=== PATIENT | male | born 1975 | race Caucasian/White ===

== ENCOUNTER 2017-04-13 17:54 | Emergency (ER) | payer MEDICAID ==
[2017-04-13 18:03] VITALS: BP 129/72
--- NOTE | 2017-04-13 18:50 | ED Physician Documentation ---
PD HPI LOWER EXT INJURY - Stated complaint Stated Complaint: R LEG INJ - Chief complaint Chief Complaint: Ext Problem - History obtained from History obtained from: Patient, Family - History of Present Illness PD HPI LOW EXT INJURY LOCATION: Other (Logging at home and 1 of the logs shifted and hit him on the bottom of the right leg and he feels like his knee may have dislocated. Pain is minimal at rest. He has not tried to walk.) Review of Systems Constitutional: denies: Fever, Chills GI: reports: Reviewed and negative : reports: Reviewed and negative PD PAST MEDICAL HISTORY - Past Medical History Past Medical History: No - Past Surgical History Past Surgical History: No - Present Medications Home Medications: Ambulatory Orders Medication Instructions Recorded Confirmed No Known Home Medications [No 04/13/17 04/13/17 Known Home Medications] - Allergies Allergies/Adverse Reactions: Allergies Allergy/AdvReac Type Severity Reaction Status Date / Time No Known Drug Allergies Allergy Verified 04/13/17 18:03 - Social History Does the pt smoke?: No Smoking Status: Never smoker Does the pt have substance abuse?: No PD ED PE NORMAL - Vitals Vital signs reviewed: Yes - General General: Alert and oriented X 3, No acute distress - Extremities Extremities: Other (Right knee is mildly tender superiorly and medially but all the ligaments are intact. He does have positive grind testing though. Negative effusion. Mild tenderness and swelling to the distal francois anteriorly and laterally over the ankle. No foot tenderness. NVI in the foot.) - Neuro Neuro: Alert and oriented X 3, Normal speech - Psych Psych: Normal mood, Normal affect Results - Vitals Vitals: Vital Signs - 24 hr 04/13/17 18:02 Temperature 36.4 C L Heart Rate 72 Respiratory 18 Rate Blood Pressure 129/72 O2 Saturation 99 Oxygen O2 Source Room air - Rads (name of study) R tib fib and 4v R knee Radiology: EMP read contemporaneously (normal) Departure - Departure Disposition: 01 Home, Self Care Clinical Impression: Contusion of right leg Qualifiers: Encounter type: initial encounter Qualified Code(s): S80.11XA - Contusion of right lower leg, initial encounter Strain of right knee Qualifiers: Encounter type: initial encounter Qualified Code(s): S86.911A - Strain of unspecified muscle(s) and tendon(s) at lower leg level, right leg, initial encounter Condition: Good Record reviewed to determine appropriate education?: Yes Instructions: ED Meniscal Injury Knee Poss Comments: Recheck with your doctor in 1 week if not better, return if worse. Discharge Date/Time: 04/13/17 19:22
--- NOTE | 2017-04-13 19:17 | XRAY Preliminary Report ---
Exam: XR KNEE 4 VIEW RT IMPRESSION: Normal knee radiography. [facility] SITE ID: [id number]
[2017-04-13] MEDS ORDERED: IBUPROFEN 800 MG TABLET PO STA (19:18)
--- NOTE | 2017-04-13 19:18 | XRAY Preliminary Report ---
Exam: XR TIB/FIB RT IMPRESSION: Normal tibia/fibula radiography. [facility] SITE ID: [id number]
--- NOTE | 2017-04-13 19:18 | XRAY Report ---
EXAM: RIGHT TIBIA/FIBULA RADIOGRAPHY EXAM DATE: 04/13/2017 07:09 PM. CLINICAL HISTORY: Leg inj. laterally pain after impact injury. COMPARISON: Right knee today. TECHNIQUE: 3 views. FINDINGS: Bones: Normal. No fracture or bone lesion. Joints: The visualized knee and ankle joints are normal. No effusions. Soft Tissues: Normal. No soft tissue swelling. IMPRESSION: Normal tibia/fibula radiography. [facility] Referring Provider Line: [phone] SITE ID: [id number]
--- NOTE | 2017-04-13 19:18 | XRAY Report ---
EXAM: RIGHT KNEE RADIOGRAPHY EXAM DATE: 04/13/2017 07:09 PM. CLINICAL HISTORY: Medial right knee pain after impact to lateral knee. COMPARISON: Tibia-fibula today. TECHNIQUE: 4 views. FINDINGS: Bones: Normal. No fractures or bone lesions. Joints: Normal. No effusion. No subluxations. Soft Tissues: Normal. No soft tissue swelling. IMPRESSION: Normal knee radiography. [facility] Referring Provider Line: [phone] SITE ID: [id number]
== END 2017-04-13 19:22 | disposition home or self-care (01) ==
LOC: ED 17:54
DX: S86.911A Strain of unspecified muscle(s) and tendon(s) at lower leg level, right leg, initial encounter (principal); S80.11XA Contusion of right lower leg, initial encounter; W20.8XXA Other cause of strike by thrown, projected or falling object, initial encounter; Y93.89 Activity, other specified; Y92.009 Unspecified place in unspecified non-institutional (private) residence as the place of occurrence of the external cause
CPT/HCPCS: 73564; 73590; 99283; A9270

== ENCOUNTER 2017-05-02 12:29 | Outpatient (CLI) | payer MEDICAID ==
--- NOTE | 2017-05-02 17:52 | MRI Report ---
EXAM: RIGHT KNEE MRI WITHOUT CONTRAST EXAM DATE: 05/02/2017 01:33 PM. CLINICAL HISTORY: Knee pain, right, acute. COMPARISON: None. TECHNIQUE: Multiplanar, multisequence T1-weighted and fluid-sensitive sequences of the knee without c ontrast. Other: None. FINDINGS: Bones: No fractures or subluxations. No marrow edema. No bone lesions. Articular Cartilage: Unremarkable. Medial Meniscus: The medial meniscus is intact. Lateral Meniscus: The lateral meniscus is intact. Cruciate Ligaments: The anterior and posterior cruciate ligaments are intact. Collateral Ligaments: Full-thickness tear proximal MCL. Series 801 image 20. This may be subacute. Th ere is a small amount of edema surrounding it. Tendons: The quadriceps, patellar, semimembranosus, and popliteus tendons are unremarkable. Musculature: No edema or fatty atrophy. Other: No effusion. No popliteal cyst. No loose bodies. The medial and lateral retinacula are intact . There is a small amount of edema in Hoffa's fat pad. IMPRESSION: 1. Full-thickness tear of the proximal MCL with a small amount of edema surrounding it, this may be s ubacute. 2. Menisci, cruciates and LCL appear unremarkable. [facility] MUSCULOSKELET[facility]IOLOG[facility] SECTION Referring Provider Line: [phone] SITE ID: [id number]
== END 2017-05-02 12:30 | disposition home or self-care (01) ==
LOC: DI 12:29
PROVIDERS: ATTEND Nurse Practitioner Family
DX: S83.411A Sprain of medial collateral ligament of right knee, initial encounter (principal)

== ENCOUNTER 2017-05-17 10:09 | Outpatient (CLI) | payer MEDICAID ==
--- NOTE | 2017-05-17 12:42 | XRAY Report ---
THREE VIEW LUMBAR SPINE: 05/17/2017 CLINICAL INDICATION: Back pain, radiculopathy. FINDINGS: AP, lateral, coned down views of the lumbar spine demonstrate normal height and alignment of the vertebral bodies. The disk spaces are preserved. The bowel gas pattern is unremarkable. IMPRESSION: NORMAL LUMBAR SPINE. TD: 05/17/2017 12:40
--- NOTE | 2017-05-17 12:43 | XRAY Report ---
THREE VIEW SACRUM AND COCCYX: 05/17/2017 CLINICAL INDICATION: Pain. FINDINGS: AP, oblique, lateral views of the sacrum and coccyx demonstrate no evidence of fracture. The sacral ala are preserved. The sacroiliac joints appear unremarkable. IMPRESSION: NORMAL SACRUM AND COCCYX. TD: 05/17/2017 12:41
== END 2017-05-17 10:10 | disposition home or self-care (01) ==
LOC: DI.S 10:09
PROVIDERS: ATTEND Nurse Practitioner Family
DX: M54.16 Radiculopathy, lumbar region (principal)
CPT/HCPCS: 72100; 72220

== ENCOUNTER 2017-05-20 09:09 | Outpatient (CLI) | payer MEDICAID ==
--- NOTE | 2017-05-20 14:21 | MRI Report ---
EXAM: MRI LUMBAR SPINE WITHOUT CONTRAST EXAM DATE: 05/20/2017 10:02 AM. CLINICAL HISTORY: Back pain, lumbar with radiculopathy. Patient reports low back pain for [address] injuring back lifting twisting with a door and also during ultimate Frisbee. Low back pain worse on left side radiating down left leg into calf/left lower leg and ankle with left leg numbness and ti ngling. COMPARISON: Radiographs 05/17/2017. TECHNIQUE: Multiplanar, multisequence T1-weighted and fluid-sensitive sequences of the lumbar spine f rom T12 to S1 without contrast. Other: None. FINDINGS: Spinal Cord: The conus terminates at L1. The conus medullaris and cauda equina are unremarkable. Alignment: No scoliosis or spondylolisthesis. Bone Marrow: Five [id number] lumbar vertebral bodies are present. No gross fracture. Small Schmo rl's nodes at multiple levels. No bone marrow edema. Disk Levels/Facets: Disk desiccation and minimal disk height loss at L5-S1. T12-L1: Unremarkable. L1-L2: Mild bilateral facet hypertrophy. No stenosis. L2-L3: Minimal bilobed disk bulge. Mild bilateral facet hypertrophy. No stenosis. L3-L4: Minimal bilobed disk bulge. Mild bilateral facet hypertrophy. Mild left neural foramen stenosi s. L4-L5: Minimal disk bulge. Mild bilateral facet hypertrophy. Mild bilateral neural foramen stenosis. L5-S1: Small broad based disk bulge with superimposed left paracentral disk extrusion extending cauda lly, measuring 1.1 cm in length. Mild bilateral facet hypertrophy. Minimal central canal stenosis. Di sk extrusion results in mass effect on the traversing left S1 nerve root. Mild bilateral neural bronson en stenosis. Musculature: No edema or fatty atrophy. Other: The partially visualized retroperitoneum is unremarkable. IMPRESSION: 1. Mild degenerative disk and facet changes. 2. Small disk bulge and left paracentral disk extrusion at L5-S1 resulting in mild central canal sten osis. Disk extrusion results in mass effect on the traversing left S1 nerve root. 3. Mild neural foramen stenosis at L3-L4 on the left, L4-L5 bilaterally, and L5-S1 bilaterally. Comment: The following findings are so common in adults without low back pain that while we report th eir presence, they must be interpreted with caution and in the context of the clinical situation. (Re deepika Cunha et al, Spine 2001) Prevalence of findings in patients without low back pain: Disk degeneration (any evidence): 92% Disk desiccation/T2 signal loss: 83% Disk height loss: 56% Disk bulge: 64% Disk protrusion: 32% Annular tear/high intensity zone: 38% [facility] Referring Provider Line: [phone] SITE ID: [id number]
== END 2017-05-20 09:10 | disposition home or self-care (01) ==
LOC: DI 09:09
PROVIDERS: ATTEND Nurse Practitioner Family
DX: M51.27 Other intervertebral disc displacement, lumbosacral region (principal); M51.36 Other intervertebral disc degeneration, lumbar region; M47.896 Other spondylosis, lumbar region; M51.37 Other intervertebral disc degeneration, lumbosacral region; M47.897 Other spondylosis, lumbosacral region
CPT/HCPCS: 72148

== ENCOUNTER 2017-08-29 16:05 | Outpatient (CLI) | payer MEDICAID | END 2017-08-29 16:06 | disposition home or self-care (01) | LOC: RT.S 16:05 | PROVIDERS: ATTEND Nurse Practitioner Family | DX: R00.2 Palpitations (principal) ==

== ENCOUNTER 2017-09-09 14:11 | Outpatient (CLI) | payer MEDICAID ==
--- NOTE | 2017-09-10 14:05 | MRI Report ---
Procedure Date: 09/09/2017 Accession Number: [id number] / [id number] Procedure: MRI - Ankle RT W/O CPT Code: FULL RESULT: EXAM: RIGHT ANKLE/HINDFOOT MRI WITHOUT CONTRAST EXAM DATE: 09/09/2017 04:02 PM. CLINICAL HISTORY: Right ankle pain. COMPARISON: Radiographs of the right lower leg 04/13/2017. TECHNIQUE: Multiplanar, multisequence T1-weighted and fluid-sensitive sequences of the ankle/hindfoot without contrast. Other: None. FINDINGS: Bones: There is a 1.1 x 0.4 x 0.3 cm well-corticated ossified fragment adjacent to the anterior-inferior aspect of the lateral malleolus which may represent an old ununited fracture or accessory ossicle. No acute fracture or bone lesions. Articular Cartilage: Unremarkable. Ligaments: The anterior and posterior tibiofibular, anterior and posterior talofibular, and calcaneofibular ligaments are intact. The deep and superficial deltoid and spring ligaments are intact. Anterior Tendons: The tibialis anterior, extensor hallucis longus, and extensor digitorum longus tendons are unremarkable. Medial Tendons: The tibialis posterior, flexor digitorum longus, and flexor hallucis longus tendons are unremarkable. Lateral Tendons: The peroneus brevis and longus are unremarkable. Achilles Tendon: The Achilles tendon is unremarkable. Musculature: No edema or fatty atrophy. Other: No effusions. The contents of the sinus tarsi and tarsal tunnel are unremarkable. No plantar fasciitis. The subcutaneous tissues are unremarkable. IMPRESSION: 1. An approximately 1.1 x 0.4 x 0.3 cm ossified fragment adjacent to the anterior-inferior aspect of the lateral malleolus which may represent an old ununited fracture or accessory ossicle. 2. Otherwise, unremarkable MRI of the right ankle. [facility] MUSCULOSKELET[facility]OLOG[facility] SECTION
== END 2017-09-09 14:12 | disposition home or self-care (01) ==
LOC: DI 14:11
PROVIDERS: ATTEND Nurse Practitioner Family
DX: M25.571 Pain in right ankle and joints of right foot (principal)

== ENCOUNTER 2017-09-30 08:51 | Outpatient (CLI) | payer MEDICAID ==
--- NOTE | 2017-09-30 18:12 | CARDIAC PROCEDURE NOTE ---
DATE OF SERVICE: 09/30/2017 Physician: Ann-Marie Coffman MD REASON FOR TEST: Palpitations. CARDIAC RISK FACTORS: None. PROCEDURE: The patient underwent a 3-minute stage Fran treadmill exercise protocol after signing informed consent. Resting heart rate 79. Peak heart rate 156 (86% predicted maximum heart rate for age). Resting blood pressure 125/80, peak blood pressure of 150/70. RESTING EKG: Normal sinus rhythm, borderline criteria for LVH and left atrial enlargement. The patient exercised for 9 minutes and 38 seconds on a 3-minute stage Fran protocol. The patient achieved a peak heart rate of 156 (86% PMHR for age), 11.2 METS. The patient developed no chest pain or shortness of breath. He had no complaints of palpitations during exercise. EKG AT [facility] showed: no ischemic ST or T wave changes. In recovery, when the patient was holding his breath while drinking water, significant sinus arrhythmia was noted (this is a normal rhythm in healthy individuals). He stated that this was "not his palpitation feeling." IMPRESSION: 1. Very good exercise tolerance. 2. No ischemic changes by EKG criteria at 86% predicted maximum heart rate. 3. No imaging studies, such as nuclear or Echo, were ordered with this test. TD: 09/30/2017 16:49 VICTOR MANUEL
== END 2017-09-30 08:52 | disposition home or self-care (01) ==
LOC: DI 08:51
PROVIDERS: ATTEND Nurse Practitioner Family
DX: R00.2 Palpitations (principal)
CPT/HCPCS: 93017

== ENCOUNTER 2018-08-08 08:00 | Outpatient (CLI) | payer MEDICAID | END 2018-08-08 23:59 | disposition home or self-care (01) | LOC: LAB.R 08:00 | PROVIDERS: ATTEND Registered Nurse | DX: J02.9 Acute pharyngitis, unspecified (principal) | CPT/HCPCS: 87070 ==

== ENCOUNTER 2019-12-11 10:07 | Outpatient (CLI) | payer MEDICAID | END 2019-12-11 10:08 | disposition home or self-care (01) | LOC: COV 10:07 | PROVIDERS: ATTEND Family Medicine | DX: R05 Cough (principal); J02.9 Acute pharyngitis, unspecified; R09.81 Nasal congestion; R53.83 Other fatigue; Z20.828 Contact with and (suspected) exposure to other viral communicable diseases ==

== ENCOUNTER 2020-03-24 12:49 | Outpatient (CLI) | payer MEDICAID ==
--- NOTE | 2020-03-24 16:22 | XRAY Report ---
PROCEDURE: Abdomen 2 View X-Ray INDICATIONS: ABDOMINAL PAIN TECHNIQUE: 2 views of the abdomen were acquired. COMPARISON: None FINDINGS: Surgical changes and devices: None. Bowel: No pneumoperitoneum. The bowel gas pattern is normal. Mild to moderate right colonic stool. Soft tissues: No masses; visualized solid organ contours appear normal in size. No suspicious abdom inal calcifications. Bones: No suspicious bony abnormalities. IMPRESSION: Mild to moderate right colonic stool. Reviewed by: Taylor Fall MD on 03/24/2020 4:20 PM PST Approved by: Taylor Fall MD on 03/24/2020 4:20 PM [facility], [place] Station ID: [id number]
[2020-03-24 19:43] LABS: BASOPHILS % (AUTO) 0.5 %; EOSINOPHILS # (AUTO) 0.1 10^3/uL (0.0-0.7); EOSINOPHILS % (AUTO) 2.4 %; HGB - HEMOGLOBIN 15.3 g/dL (14.0-18.0); LYMPHOCYTES # (AUTO) 2.5 10^3/uL (1.5-3.5); LYMPHOCYTES % (AUTO) 42.7 %; MEAN CORPUSCULAR HGB CONC 33.5 g/dL (32.0-36.0); MEAN CORPUSCULAR VOLUME 92.7 fL (80.0-94.0); MEAN PLATELET VOLUME 11.8 fL (7.4-11.4); MONOCYTES # (AUTO) 0.6 10^3/uL (0.0-1.0); MONOCYTES % (AUTO) 9.4 %; NEUTROPHILS # (AUTO) 2.7 10^3/uL (1.5-6.6); NEUTROPHILS % (AUTO) 44.8 %; PLT - PLATELET COUNT 212 10^3/uL (130-450); RED BLOOD COUNT 4.93 10^6/uL (4.70-6.10); RED CELL DISTRIBUTION WIDTH 11.9 % (12.0-15.0)
[2020-03-24 19:50] LABS: BILIRUBIN,URINE NEGATIVE (NEGATIVE); GLUCOSE, URINE (UA) NEGATIVE (NEGATIVE); KETONES,URINE (UA) NEGATIVE (NEGATIVE); LEUKOCYTE ESTERASE, URINE NEGATIVE (NEGATIVE); NITRITE,URINE NEGATIVE (NEGATIVE); OCCULT BLOOD,URINE NEGATIVE (NEGATIVE); PROTEIN,URINE NEGATIVE (NEGATIVE); UROBILINOGEN,URINE 0.2 (NORMAL) E.U./dL (NORMAL)
[2020-03-24 19:56] LABS: ALBUMIN 4.4 g/dL (3.2-5.5); ALBUMIN/GLOBULIN RATIO 1.3 (1.0-2.2); BILIRUBIN,TOTAL 0.8 mg/dL (0.2-1.0); CALCIUM 9.2 mg/dL (8.5-10.3); CREATININE 0.9 mg/dL (0.6-1.2); TOTAL PROTEIN 7.7 g/dL (6.7-8.2)
[2020-03-24 20:03] LABS: BACTERIA,URINE None Seen /HPF (None Seen); CLARITY,URINE CLEAR (CLEAR); RBC,URINE None Seen /HPF (0-5); SQUAMOUS EPITHELIAL CELL,UR NONE SEEN (<= Few)
== END 2020-03-24 12:50 | disposition home or self-care (01) ==
LOC: DI.S 12:49
PROVIDERS: ATTEND Registered Nurse
DX: R10.9 Unspecified abdominal pain (principal)
CPT/HCPCS: 36415; 80053; 81001; 82150; 83690; 85025; 87086

== ENCOUNTER 2020-03-26 10:20 | Outpatient (CLI) | payer MEDICAID ==
--- NOTE | 2020-03-26 11:17 | Ultrasound Report ---
PROCEDURE: Abdomen Limited INDICATIONS: ABD PAIN TECHNIQUE: Real-time focused scanning was performed of the abdomen, with image documentation. COMPARISON: Abdomen plain film imaging 03/24/2020. FINDINGS: The liver is normal in size and echotexture. Note is made of a nonmobile stone at the gall bladder neck measuring 1.0 x 0.8 x 0.7 cm. The gallbladder itself shows no evidence of abnormal wall thickening. The common duct measures 4 mm, normal. The right kidney measures 11.1 cm craniocaudad wit h normal cortical thickness. IMPRESSION: The nonmobile stone within the gallbladder neck is the likely etiology for recurrent postprandial zofia n. Surgical consultation likely is warranted. The absence of acute cholecystitis does not exclude the potential of cholecystectomy for biliary colic in this clinical circumstance. Also, a follow-up nucl ear medicine hepatobiliary scan to document patency or obstruction of the cystic duct may be warrante d. Reviewed by: Ritchie Hess MD on 03/26/2020 11:16 AM PST Approved by: Ritchie Hess MD on 03/26/2020 11:16 AM PST Station ID: [id number]
== END 2020-03-26 10:21 | disposition home or self-care (01) ==
LOC: DI 10:20
PROVIDERS: ATTEND Registered Nurse
DX: K80.20 Calculus of gallbladder without cholecystitis without obstruction (principal)